=== PATIENT | female | born 1980 | race African-American/Black ===

== ENCOUNTER 2022-03-14 14:26 | Emergency (ER) | payer OTHER ==
[~2022-03-14] VITALS: Ht 165.1 cm; Wt 89.0 kg
[2022-03-14] MEDS ORDERED: LIDOCAINE HCL 1% 20ML VIAL (Pyxis) INJ INFIL ONE (15:00)
[2022-03-14] MEDS ORDERED: DOXYCYCLINE HYCLATE 100MG CAPSULE PO ONE (15:00)
[2022-03-14] MEDS ORDERED: CEFTRIAXONE SODIUM 500 MG/VIAL IM ONE (15:00)
[2022-03-14 16:02] LABS: CLARITY URINE CLEAR (CLEAR); COLOR URINE YELLOW (YELLOW); KETONES URINE NEGATIVE (NEGATIVE); LEUKOCYTE ESTERASE URINE TRACE (NEGATIVE); NITRITE URINE NEGATIVE (NEGATIVE); OCCULT BLOOD URINE 3+ (NEGATIVE); PH URINE 5.5 (4.5-8.0); PROTEIN URINE NEGATIVE (NEGATIVE); SPECIFIC GRAVITY URINE 1.021 (1.005-1.030); UROBILINOGEN URINE 0.2 E.U./dL (0.2-1.0)
[2022-03-14] MEDS ORDERED: CEFTRIAXONE SODIUM 500 MG/VIAL IM NR (16:30)
[2022-03-14] MEDS ORDERED: DOXYCYCLINE HYCLATE 100MG CAPSULE PO NR (16:30)
[2022-03-14] MEDS ORDERED: KETOROLAC 60MG/2ML VIAL IM ONE (16:30)
[2022-03-14 16:48] VITALS: BP 102/73
[2022-03-14] MEDS ORDERED: DOXY100T2 MT (17:07)
[2022-03-14] MEDS ORDERED: METR500T MT (17:07)
[2022-03-14] MEDS ORDERED: IBUP-2029 MT (17:07)
[2022-03-14] MEDS ORDERED: CEPH500C2 MT (17:07)
[2022-03-14] MEDS ORDERED: GABA-532 MT (17:12)
[2022-03-17 07:10] LABS: NEISSERIA GONORRHOEAE NAA Negative (Negative)
== END 2022-03-14 17:23 | disposition home or self-care (01) ==
LOC: ER 14:26
DX: M54.50 Low back pain, unspecified (principal); A64 Unspecified sexually transmitted disease; Z79.899 Other long term (current) drug therapy
CPT/HCPCS: 81003; 81025; 87210; 87491; 87591; 96372; 99284; J0696; J1885; J3490